=== PATIENT | female | born 1940 | race Caucasian/White ===

== ENCOUNTER 2018-09-17 12:15 | Day surgery (SDC) | payer MEDICARE, BC ==
[~2018-09-17] VITALS: Ht 170.2 cm; Wt 55.9 kg
[2018-09-17] MEDS ORDERED: fentaNYL/PF 50MCG/1 ML 2ML syringe ONE (12:18)
[2018-09-17] MEDS ORDERED: MIDAZolam 5mg/5ml vial ONE (12:18)
[2018-09-17 12:30] VITALS: BP 149/88
[2018-09-17] MEDS ORDERED: CHOL10002 PO (12:48)
[2018-09-17] MEDS ORDERED: [UNRECOGNIZED DRUG - CODE] (12:48)
[2018-09-17] MEDS ORDERED: LACT1CAP65 PO (12:48)
[2018-09-17] MEDS ORDERED: EST1T PO (12:49)
[2018-09-17 14:10] VITALS: BP 125/59
[2018-09-17 14:20] VITALS: BP 113/73
[2018-09-17 14:30] VITALS: BP 116/56
[2018-09-17 14:40] VITALS: BP 115/57
== END 2018-09-17 14:44 | disposition home or self-care (01) ==
LOC: GI LAB 12:15
PROVIDERS: ATTEND Internal Medicine Gastroenterology
DX: D12.0 Benign neoplasm of cecum (principal); K64.8 Other hemorrhoids; K57.30 Diverticulosis of large intestine without perforation or abscess without bleeding; Z88.5 Allergy status to narcotic agent; Z88.6 Allergy status to analgesic agent; Z96.653 Presence of artificial knee joint, bilateral; Z79.899 Other long term (current) drug therapy; Z98.890 Other specified postprocedural states
CPT/HCPCS: 45385; 99153; G0500; J2250; J3010; J7030; 88305; 99152; A4620

== ENCOUNTER → 2022-11-21 | Day surgery (SDC) | payer MEDICARE, BC ==
[2022-11-21] VITALS (9 sets, daily range): BP systolic 115–162; BP diastolic 54–88
[~2022-11-21] VITALS: Ht 170.2 cm; Wt 63.1 kg
[~2022-11-21] MED LIST: ASPI-1264 PO; BUPIVAcaine 0.5% W/EPI /PF 30ml vial IJ ONE; CHOL10002 PO; EST1T PO; FEXO-310 PO; GUAI600T45 PO; LIDOcaine 1% w/EPI 1:100,000 30ml vial (MDV) IJ ONE; VITA400T10 PO; [UNRECOGNIZED DRUG - OTHER] PO; ceFAZolin 1000mg inj ONE; dexamethasone sod phosphate 4mg/ml inj. ONE; epiNEPHrine 1 mg/ml inj IR ONE; famotidine 20mg tablet PO ONE; fentaNYL/PF 50MCG/1 ML 2ML syringe ONE; meperidine/PF 25mg/ml syringe IV PRN; midazolam 1 mg/ML 2ml injection ONE; morphine 2 MG/ML inj. syringe IV PRN; morphine 4 MG/ML inj SYRINge IV PRN; mupirocin 2% ointment 22GM ONE; ofloxacin 0.3% 5ml otic drops EACH EAR SCH; ondansetron/PF 4mg/2ml inj IV PRN; ondansetron/PF 4mg/2ml inj ONE; proCHLORperazine 10 MG/2 ml inj IV PRN; propofol inj 20 ML IV ONE; ringers solution, lacted 1,000 ML IV SCH; sevoflurane 250ml liquid IH ONE
--- NOTE | 2022-11-21 05:55 | NUR ---
RECEIVED PT IN THE PAS UNIT, PREPPED FOR SURGERY. RAPID COVID TEST PERFORMED. IV STARTED IN RIGHT FOREARM WITHOUT DIFFICULTY. LABS PRESENT FROM [facility]. 12 LEAD EKG ORDERED AND COMPLETED, AWAITING REVIEW FROM ANESTHESIA. PT HAS QUESTIONS FOR SURGEON, REFERENCE SKIN GRAFT. PT ASSISTED TO THE BATHROOM.
--- NOTE | 2022-11-21 06:45 | NUR ---
DR RIOS AT BEDSIDE, ALL QUESTIONS ANSWERED. COVID TESTING NEGATIVE, PT TAKEN TO THE OR BY OR NURSE AFTER ANESTHESIA EVALUATION.
--- NOTE | 2022-11-21 09:27 | NUR ---
Received from OR via , accompanied by Anesthesiologist MARSHALL AND OR NURSE and report given by Anesthesiolgist. PT IS SLEEPY BUT AWAKE AND C/O PAIN. MED GIVEN. DRESSING TO LEFT EAR HAS GAUZE UNDER PLASTIC CUP WITH VELCRO STRAP. 20G TO R LAOsbaldo FERNANDEZ INFUSING. VSS Addendum: 11/21/22 at 1000 by Alison Carolina RN Amended: Links added.
[2022-11-21] MEDS: meperidine/PF 25mg/ml syringe IV PRN ×2 (09:35→10:06)
--- NOTE | 2022-11-21 10:57 | NUR ---
I HAVE REVIEWED D/C INSTRUCTIONS WITH PATIENT AND THEY HAVE VERBALIZED UNDERSTANDING OF INSTRUCTIONS. PT DAUGHTER IN LAW WILL REVIEW D/C INSTRUCTIONS WITH PT AGAIN ONCE HOME; SHE IS PATIENTS TRANSPORT HOME AND STATES SHE WILL BE WITH [employer] THROUGHOUT THE NIGHT AND/OR PT'S DAUGHTER WILL BE PRESENT. PT REPORTS DIZZINESS WHEN UP AND WALKING TO THE BATHROOM; NURSE TRANSPORTED BY WHEECHAIR THEN TO BATHROOM. PT AGREES THAT THIS WOULD BE DUE TO TYPE OF SURGERY, MEDICATIONS AND KNOWS TO CONTACT DR. RIOS WITH ANY IMMEDIATE QUESTIONS REGARDING THE DIZZINESS. PATIENT D/C HOME WITH ALL BELONGINGS AND FAMILY GAVE TRANSPORT Addendum: 11/21/22 at 1122 by Alison Carolina RN Amended: Links added.
== END | disposition home or self-care (01) ==
LOC: PAS 05:40
PROVIDERS: ATTEND Otolaryngology
DX: D23.22 Other benign neoplasm of skin of left ear and external auricular canal (principal); H61.22 Impacted cerumen, left ear; F17.210 Nicotine dependence, cigarettes, uncomplicated; Z98.890 Other specified postprocedural states; Z88.5 Allergy status to narcotic agent; Z20.822 Contact with and (suspected) exposure to COVID-19; Z79.899 Other long term (current) drug therapy
CPT/HCPCS: 15260; 69145; 82948; 87635; 93005; C9250; C9803; J0171; J0690; J1100; J2175; J2250; J2405; J2704; J3010; J3490; J7030; J7120; S0020; Z7506; Z7508; Z7512; A4618; A6449; A7000